=== PATIENT | male | born 1965 | race Caucasian/White ===

== ENCOUNTER 2021-03-20 10:26 | Emergency (ER) | payer MEDICAID, OTHER ==
[~2021-03-20] VITALS: Ht 165.1 cm; Wt 82.7 kg
[~2021-03-20 10:26] MED LIST: TYLENOL
[2021-03-20 10:50] VITALS: BP 185/91
--- NOTE | 2021-03-20 10:56 | NUR ---
BRADEN MATTHEWS EVALUATING PT AT THIS TIME
--- NOTE | 2021-03-20 11:18 | NUR ---
PT TAKEN TO CT VIA W/C
[2021-03-20 12:48] LABS: BASOPHILS % (AUTO) 0.7 % (0.0-2.0); EOSINOPHILS # (AUTO) 0.1 K/uL (0-0.4); EOSINOPHILS % (AUTO) 1.4 % (0.0-4.0); HEMATOCRIT 46.3 % (36-52); LYMPHOCYTES # (AUTO) 1.5 K/uL (2.0-11.5); LYMPHOCYTES % (AUTO) 24.6 % (20.5-51.1); MEAN CORPUSCULAR HEMOGLOBIN 30 pg (27-31); MEAN CORPUSCULAR HGB CONC 35 g/dL (33-37); MEAN CORPUSCULAR VOLUME 88.3 fL (80-94); MONOCYTES # (AUTO) 0.3 K/uL (0.8-1.0); MONOCYTES % (AUTO) 5.1 % (1.7-9.3); NEUTROPHILS # (AUTO) 4.1 K/uL (1.8-7.7); NEUTROPHILS % (AUTO) 68.2 % (42.2-75.2); PLATELET COUNT (AUTO) 218 K/uL (140-450); RED BLOOD CELL COUNT(AUTO) 5.24 MIL/uL (4.20-6.10); RED CELL DISTRIBUTION WIDTH 13.3 % (11.6-13.7)
[2021-03-20 12:56] LABS: ALBUMIN 4.1 g/dL (3.4-5.0); ANION GAP 12.7 (8-16); CREATININE 1.3 mg/dL (0.6-1.3); POTASSIUM 3.7 mmol/L (3.5-5.1); TOTAL BILIRUBIN 0.5 mg/dL (0.0-1.0)
[2021-03-20] MEDS ORDERED: PEG15DRO2 OP (13:54)
[2021-03-20] MEDS ORDERED: PRED20TA5 PO (13:54)
[2021-03-20] MEDS ORDERED: ACYC400T14 PO (13:54)
--- NOTE | 2021-03-20 13:57 | NUR ---
NO NURSING CARE RENDERED. Patient discharged with v/s stable. Written and verbal after care instructions ABOUT SHEA PALSY given and explained. Patient alert, oriented and verbalized understanding of instructions. Ambulatory with steady gait. All questions addressed prior to discharge. ID band removed. Patient advised to follow up with PMD. Rx of ACYCLOVIR, ARTIFICIAL TEARS DROPS, AND PREDNISONE given. Patient educated on indication of medication including possible reaction and side effects. Opportunity to ask questions provided and answered.
== END 2021-03-20 13:57 | disposition home or self-care (01) ==
LOC: MED 10:26
DX: G51.0 Bell's palsy (principal); I10 Essential (primary) hypertension
CPT/HCPCS: 36415; 70450; 80053; 85025; 99284

== ENCOUNTER 2023-06-11 18:50 | Emergency (ER) | payer MEDICAID, OTHER ==
[~2023-06-11] VITALS: Ht 165.1 cm; Wt 78.5 kg
[~2023-06-11 18:50] MED LIST changes: +ACYC400T14 PO; +PEG15DRO10 OP; +PRED20TA5 PO
[2023-06-11 18:53] VITALS: BP 116/70; PULSE 69; RESP 20; TEMP 96.2; O2SAT 98
[2023-06-11 19:38] LABS: BASOPHILS % (AUTO) 0.5 % (0.0-2.0); EOSINOPHILS # (AUTO) 0.1 K/uL (0-0.4); EOSINOPHILS % (AUTO) 0.9 % (0.0-4.0); HEMATOCRIT 34.1 % (36-52); HEMOGLOBIN 11.5 g/dL (12.0-18.0); LYMPHOCYTES # (AUTO) 0.4 K/uL (2.0-11.5); LYMPHOCYTES % (AUTO) 6.9 % (20.5-51.1); MEAN CORPUSCULAR HEMOGLOBIN 29 pg (27-31); MEAN CORPUSCULAR HGB CONC 34 g/dL (33-37); MEAN CORPUSCULAR VOLUME 85.4 fL (80-94); MONOCYTES # (AUTO) 0.9 K/uL (0.8-1.0); MONOCYTES % (AUTO) 14.4 % (1.7-9.3); NEUTROPHILS # (AUTO) 4.9 K/uL (1.8-7.7); NEUTROPHILS % (AUTO) 77.3 % (42.2-75.2); PLATELET COUNT (AUTO) 99 K/uL (140-450); RED CELL DISTRIBUTION WIDTH 15.7 % (11.6-13.7); WHITE BLOOD COUNT (AUTO) 6.3 K/uL (4.8-10.8)
[2023-06-11 20:05] LABS: ALANINE AMINOTRANSFERASE 98 U/L (12-78); ALBUMIN 3.1 g/dL (3.4-5.0); ALKALINE PHOSPHATASE 118 U/L (50-136); ANION GAP 12.7 (8-16); ASPARTATE AMINOTRANSFERASE 45 U/L (15-37); CALCIUM 9.4 mg/dL (8.5-10.1); CARBON DIOXIDE 26.4 mmol/L (21-32); CHLORIDE 102 mmol/L (98-107); CREATININE 1.2 mg/dL (0.6-1.3); GFR ARICAN-AMERICAN 81 mL/min (>90); GFR NON ARICAN-AMERICAN 67 mL/min (>90); GLUCOSE 197 mg/dL (74-106); LIPASE 19 U/L (16-77); POTASSIUM 4.1 mmol/L (3.5-5.1); SODIUM SERUM 137 mmol/L (136-145); TOTAL BILIRUBIN 0.6 mg/dL (0.0-1.0); TOTAL PROTEIN, SERUM 6.1 g/dL (6.4-8.2); UREA NITROGEN, BLOOD 20 mg/dL (7-18)
[2023-06-11 21:43] VITALS: BP 112/66; PULSE 60; O2SAT 99
[2023-06-11] MEDS ORDERED: METO-486 PO (22:27)
== END 2023-06-11 22:40 | disposition home or self-care (01) ==
LOC: MED 18:50
DX: R07.89 Other chest pain (principal); R06.02 Shortness of breath; K62.5 Hemorrhage of anus and rectum; R50.9 Fever, unspecified; R53.83 Other fatigue; R53.1 Weakness; R10.9 Unspecified abdominal pain; I10 Essential (primary) hypertension; Z79.899 Other long term (current) drug therapy
CPT/HCPCS: 36415; 71046; 80053; 83605; 83690; 83880; 84484; 85025; 85379; 93005; 99285

== ENCOUNTER 2023-10-12 14:52 | Emergency (ER) | payer OTHER ==
[~2023-10-12] VITALS: Ht 167.6 cm; Wt 73.5 kg
[~2023-10-12 14:52] MED LIST changes: +METO-486 PO
[2023-10-12 15:06] VITALS: BP 172/108; PULSE 83; RESP 18; TEMP 98.5; O2SAT 99
[2023-10-12 15:41] LABS: HEMATOCRIT 40.3 % (36-52); HEMOGLOBIN 13.7 g/dL (12.0-18.0); MEAN CORPUSCULAR HEMOGLOBIN 28 pg (27-31); MEAN CORPUSCULAR HGB CONC 34 g/dL (33-37); MEAN CORPUSCULAR VOLUME 83.6 fL (80-94); PLATELET COUNT (AUTO) 164 K/uL (140-450); RED BLOOD CELL COUNT(AUTO) 4.82 MIL/uL (4.20-6.10); RED CELL DISTRIBUTION WIDTH 20.7 % (11.6-13.7); WHITE BLOOD COUNT (AUTO) 4.6 K/uL (4.8-10.8)
[2023-10-12 15:48] LABS: ANION GAP 11.3 (8-16); CALCIUM 9.2 mg/dL (8.5-10.1); CARBON DIOXIDE 27.7 mmol/L (21-32); CREATININE 1.3 mg/dL (0.6-1.3)
[2023-10-12] MEDS ORDERED: cefTRIAXone 1,000 MG VIAL ONE (16:06)
[2023-10-12 16:30] LABS: EOSINOPHILS % (MANUAL) 8 % (0-4); LYMPHOCYTES % (MANUAL) 18 % (20-46); MONOCYTES % (MANUAL) 13 % (5-12); PLATELET ESTIMATE ADEQUATE
--- NOTE | 2023-10-12 16:30 | NUR ---
RECEIVED REPORT FROM JAMEY PATTON PT IS A 57 Y/O M WITH HX OF HODGKIN LYMPHOMA AND HTN; PTS C/O IS A CHEMO PORT IS INFECTED, HAS BEEN GETTING RED FOR A WEEK, CAME TO ER FOR EVALUATION. PMH: HODGKIN LYMPHOMA, HTN ALLERGIES NKA
[2023-10-12 16:31] LABS: ANISOCYTOSIS 1+; OVALOCYTES 1+; POIKILOCYTOSIS 1+; TEAR DROP CELLS 1+
--- NOTE | 2023-10-12 16:39 | NUR ---
PT HAS BEEN MEDICATED PER PROVIDERS ORDERS.
[2023-10-12] MEDS ORDERED: SULF-59 PO (17:00)
--- NOTE | 2023-10-12 17:17 | NUR ---
Patient discharged with v/s stable. Written and verbal after care instructions given and explained. Patient verbalized understanding. Ambulatory with steady gait. All questions addressed prior to discharge. Advised to follow up with PMD.
--- NOTE | 2023-10-12 19:07 | NUR ---
Chart checked and completed. The patient's care was reviewed and supervised by TIERA RUBY RN.
[2023-10-12 19:11] VITALS: BP 172/108; PULSE 83; RESP 18; TEMP 98.5; O2SAT 99
== END 2023-10-12 17:17 | disposition home or self-care (01) ==
LOC: MED 14:52
DX: T80.212A Local infection due to central venous catheter, initial encounter (principal); L03.313 Cellulitis of chest wall; I10 Essential (primary) hypertension; Z85.71 Personal history of Hodgkin lymphoma; Z79.899 Other long term (current) drug therapy
CPT/HCPCS: 36415; 80048; 85025; 87040; 93005; 96365; 99284; J0696